=== PATIENT | male | born 1945 | race Caucasian/White ===

== ENCOUNTER 2020-08-08 09:52 | Outpatient (REF) | payer BC, SELFPAY ==
[2020-08-08 12:41] LABS: Hematocrit 35.1 % (42-52); Hemoglobin 11.1 g/dl (14.0-18.0); Mean Corpuscular HGB Conc 31.6 g/dl (31.0-36.0); Mean Corpuscular Hemoglobin 27.3 pg (27.0-33.0); Mean Corpuscular Volume 86.2 fL (80-98); Platelet Count 321 X10*3/uL (160-400); Red Blood Count 4.07 X10*6/uL (4.60-5.80); Red Cell Distribution Width 15.1 % (11.0-16.0)
[2020-08-08 13:23] LABS: TSH reflex Free T4 3.84 uIU/mL (0.32-4.0)
== END 2020-08-08 09:53 | disposition home or self-care (01) ==
LOC: HO.10HDL 09:52
PROVIDERS: Visit Provider Internal Medicine Gastroenterology
DX: R19.8 Other specified symptoms and signs involving the digestive system and abdomen (principal)
CPT/HCPCS: 36415; 84443; 85027

== ENCOUNTER 2020-08-10 09:29 | Outpatient (REF) | payer BC, SELFPAY ==
[2020-08-10 12:32] LABS: Leukocytes Stool Qualitative NEGATIVE (NEGATIVE)
== END 2020-08-10 09:30 | disposition home or self-care (01) ==
LOC: HO.LNP 09:29
PROVIDERS: Visit Provider Internal Medicine Gastroenterology
DX: R19.8 Other specified symptoms and signs involving the digestive system and abdomen (principal)
CPT/HCPCS: 87045; 87046; 87177; 87209; 89055

== ENCOUNTER 2022-01-20 06:51 | Day surgery (SDC) | payer MEDICARE, SELFPAY ==
--- NOTE | 2022-01-16 10:17 | P.CONAN_ITS ---
Documented by User: Ximena Shaw NP 01/16/22 10:17 HPI - Anesthesia Eval Consult details Narrative: 76yo M for Upper Endoscopy and Colonoscopy [facility] Past Medical History Medical History Essential thrombocytosis GERD (gastroesophageal reflux disease) Hiatal hernia Hypogonadism in male Klinefelter syndrome Osteopenia Scoliosis Surgical History Surgical History H/O colonoscopy History of esophagogastroduodenoscopy (EGD) History of open reduction and internal fixation (ORIF) procedure Hx of tonsillectomy Hx of total knee replacement Social History Social History Patient Tobacco Use Status: Former Tobacco user Quit Date: 2010 Tobacco use type: Cigarette Use of substances other than those prescribed or required for medical reasons: No Are you DNR?: No Advance Directives: No Advance Directives Information Provided: Yes Meds Allergies Allergy/AdvReac Type Severity Reaction Status Date / Time No Known Allergies Allergy Verified 01/20/22 07:21 Home Medications Medication Instructions Recorded Confirmed Last Taken Type anagrelide 1 mg capsule 3 cap PO DAILY 01/20/22 01/20/22 01/20/22 04:00 History Exam Exam Date and Time: January 16, 2022 1017 Height,Weight and Vital Signs: Height 6 ft 2 in Assessment and Plan Assessment Anesthesia Assessment: Chart Reviewed Documented by User: Shelley Lugo MD 01/20/22 07:40 [facility] Past Medical History Medical History Essential thrombocytosis GERD (gastroesophageal reflux disease) Hiatal hernia Hypogonadism in male Klinefelter syndrome Osteopenia Scoliosis Functional capacity: independent ambulation Family History Family history of problems with anesthesia: No Surgical History Surgical History H/O colonoscopy History of esophagogastroduodenoscopy (EGD) History of open reduction and internal fixation (ORIF) procedure Hx of tonsillectomy Hx of total knee replacement History of Problems with Anesthesia: No Social History Social History Patient Tobacco Use Status: Former Tobacco user Quit Date: 2010 Tobacco use type: Cigarette Use of substances other than those prescribed or required for medical reasons: No Are you DNR?: No Advance Directives: No Advance Directives Information Provided: Yes Meds Allergies Allergy/AdvReac Type Severity Reaction Status Date / Time No Known Allergies Allergy Verified 01/20/22 07:21 Home Medications Medication Instructions Recorded Confirmed Last Taken Type anagrelide 1 mg capsule 3 cap PO DAILY 01/20/22 01/20/22 01/20/22 04:00 History Exam Airway Mallampati Class: II TM Dist: >3cm Neck ROM: Full Heart: RRR Lungs: CTA Assessment and Plan Final Anesthetic Review Family History of Problems with Anesthesia: No History of Problems with Anesthesia: No ASA Class: II Final Preanesthetic Review: No Changes in Pt Med Stat, Meds/Allgs Chart Reviewed, Consent Obtained/Reviewed and Anes Risks/Benef Reviewed Patient Risk: Low Procedure Risk: Low Anesthetic Plan Anesthetic Plan: MAC: Disposition: Standard PACU
[2022-01-20 07:12] VITALS: BMI 20.6
[2022-01-20 07:36] VITALS: BP 104/67; PULSE 75; RESP 16; TEMP 36.3; O2SAT 98
[2022-01-20] MEDS: Lactated Ringers 1,000 ML 100 ML IVCONT (07:42)
--- NOTE | 2022-01-20 08:13 | P.HPSUR_ITS ---
Pre-Procedural Eval Section A Date of Service: 01/20/22 Section B Chief Complaint: abnormal weight loss,Other specified symptoms and Details of Present Illness: see H&P no changes Relevant Family History (Specify if Yes): No Relevant Social History: None Present Medications: see Short Stay Collaborative assessment Medical History: No relevant PMH History of Previous Operations: No relevant previous surgery Allergies: Allergies Allergy/AdvReac Type Severity Reaction Status Date / Time No Known Allergies Allergy Verified 01/20/22 07:21 Review of Systems Sugical H&P ROS: Negative: Constitution, Cardiovascular, Respiratory, Neurolo gical, Psychiatric, Hem-Onc, Allergic/Immunologic, Gastrointestinal, Genitourinary, Musculoskeletal, Integumentary, Endocrine and Eyes/Ears/Nose/Throat Exam Surgical H&P Exam: Normal: HEENT, Normal: Heart, Normal: Lungs, Normal: Extremities, Normal: Abdomen, Normal: Skin and Normal: Neurological Plan Diagnosis/Plan: Unchanged I have reviewed the history and physical and performed a pertinent physical examination on my patient. No changes have occurred unless specified.
--- NOTE | 2022-01-20 09:28 | PM.OP ---
Brief Operative Note Date of Service: 01/20/22 Pre-op diagnosis: wt loss, change in bowels Post-op diagnosis: same Surgeon: Venkat Herrera Anesthesia: MAC Was an Clinical Services Manager used for this Procedure?: No Estimated blood loss (mL): 5 Pathology: other Condition: stable Disposition: PACU
[2022-01-20 09:30] VITALS: BP 90/55; PULSE 66; RESP 16; TEMP 36.3; O2SAT 98
[2022-01-20 09:50] VITALS: BP 101/68; PULSE 61; RESP 16; TEMP 36.3; O2SAT 99
--- NOTE | 2022-01-20 10:07 | OP_ITS ---
SURGEON: Venkat Herrera MD INDICATIONS: Change in bowels and weight loss. PREOPERATIVE DIAGNOSIS: POSTOPERATIVE DIAGNOSIS: PROCEDURE PERFORMED: ESTIMATED BLOOD LOSS: COMPLICATIONS: ANESTHESIA: ASSISTANTS: SPECIMENS: PROCEDURES: 1. Upper endoscopy with biopsy. 2. Colonoscopy to the terminal ileum with biopsy. MEDICATIONS: Monitored anesthesia care. DESCRIPTION OF PROCEDURE: History and physical performed. The risks and benefits of the procedure were explained to the patient. Informed consent was obtained. The patient was placed in the left lateral decubitus position. The Olympus video gastroscope was introduced into the esophagus, stomach, and duodenum. Examination was performed. The scope was removed. He was repositioned for colonoscopy. A digital rectal exam was performed and was found to be normal. The Olympus pediatric video colonoscope was introduced into the rectum and advanced to the cecum with some difficulty. The cecum was identified by transillumination, palpation, and identification of ileocecal valve. Examination was performed and the scope was removed. He tolerated both procedures well and was sent to recovery area in stable condition. FINDINGS: UPPER ENDOSCOPY: 1. Esophagus. The esophagus was normal. There was mild nodularity at the EG junction. This was biopsied. 2. Stomach. The stomach showed no evidence of masses or ulcers. There was a large hiatal hernia, which made cannulating the duodenum difficult. 3. Duodenum. Duodenal bulb and second portion were normal. Biopsies were obtained from the second portion and from the EG junction. COLONOSCOPY: The terminal ileum was briefly glimpsed and appeared normal. The visualized colonic mucosa was normal. The quality of the prep was fair with some retained stool. No polyps were identified. There was extensive sigmoid diverticulosis with luminal narrowing, tortuous turns, which made the procedure extended and difficult. Retroflexed examination showed moderate-sized internal hemorrhoids. The procedure was performed on 01/20/2022. IMPRESSION: 1. Hiatal hernia. 2. Diverticulosis. RECOMMENDATIONS: 1. Follow up the biopsy results. 2. Further screening colonoscopies are not recommended based on age. MD ALEJO Quarles/DOMI / [id number]
--- NOTE | 2022-01-20 10:11 | HO.POSTANES ---
Post Anesthesia Evaluation Post Anesthesia Evaluation Vital Signs: Vital Signs Temp Pulse Resp BP Pulse Ox O2 Del Method 01/20/22 09:50 97.4 F 61 16 101/68 99 Room Air 01/20/22 09:30 97.4 F 66 16 90/55 L 98 Room Air 01/20/22 07:36 97.3 F 75 16 104/67 98 Room Air Anesthesia: Monitored Mental Status: Awake Pain Control: Satisfactory Nausea/Vomiting: None Hydration: Adequate Anesthesia-Related Issues: No Anes. Related Issues
== END 2022-01-20 10:18 | disposition home or self-care (01) ==
PROVIDERS: PCP Internal Medicine; Visit Provider Internal Medicine Gastroenterology
PROC: (CPT 45380; principal; 2022-01-20 08:10)
DX: R19.4 Change in bowel habit (principal); R63.4 Abnormal weight loss; Z68.20 Body mass index [BMI] 20.0-20.9, adult; K57.30 Diverticulosis of large intestine without perforation or abscess without bleeding; K64.8 Other hemorrhoids; K64.4 Residual hemorrhoidal skin tags; K21.9 Gastro-esophageal reflux disease without esophagitis; D47.3 Essential (hemorrhagic) thrombocythemia; Q98.4 Klinefelter syndrome, unspecified; M85.80 Other specified disorders of bone density and structure, unspecified site; Z79.899 Other long term (current) drug therapy
CPT/HCPCS: 45380; 43239; 88305; J2370